=== PATIENT | female | born 1985 | race Caucasian/White ===

== ENCOUNTER → 2021-07-01 | Day surgery (SDC) | payer OTHER ==
[~2021-07-01] VITALS: Ht 175.3 cm; Wt 74.4 kg
[~2021-07-01] MED LIST: BCAA PO; CEPHALEXIN500 MG PO; COLLAGEN PO; DIGESTIVE ENZY220 MG PO; FISH OIL 1,0001 EAC1 PO; MIRENA1 EACH; NORCO7.5 PO; PROBIOTIC1 EAC2 PO; PROTEIN POWDER480 GM PO; SUPER THERAVIT1 EACH PO; [UNRECOGNIZED DRUG - OTHER] PO; [UNRECOGNIZED DRUG - OTHER] PO
--- NOTE | ~2021-07-01 | O ---
[facility] [place] [address] OPERATIVE REPORT Name: MONSTER LA Room #: REG [facility] M.R.#: [id number] Admission: 07/01/21 Attend Phys: Ramirez Galindo MD Discharge: Date of : 81 Report #: [id number] THIS REPORT FOR: cc: Desirae Darling MD, Michelle R. MD Shapiro, Peter E. MD ~ DATE OF SERVICE: 07/01/2021 PREOPERATIVE DIAGNOSES: Deviated nasal septum with nasal airway obstruction. POSTOPERATIVE DIAGNOSES: Deviated nasal septum with nasal airway obstruction. OPERATIVE PROCEDURE: Nasal septoplasty. ANESTHESIA: General via laryngeal mask. DESCRIPTION OF PROCEDURE: The patient was taken to the operating room and placed in supine position. General anesthesia was induced by laryngeal mask. Once adequate general anesthesia was obtained, local nasal anesthesia was induced by submucoperichondrial injection of 1% lidocaine with 1:100,000 epinephrine and topical application of cocaine solution. The patient was then draped in a sterile manner. The patient had a nasal septal deviation, primarily to the right side. A hemitransfixion incision was placed on the right side of the nose and the mucoperichondrium and mucoperiosteum were elevated off of the septum. She had a granuloma on the left anterior superior septum and I removed this with a small scissors. I the cartilage near the bony cartilaginous junction and elevated the perichondrium and periosteum on the opposite side. I removed deviated bone from the mid portion of the septum. There was a septal spur along the floor consisting of hypertrophic cartilage and a fractured maxillary crest. The cartilage was removed as a long strip. The maxillary crest was infractured and rongeured. After these maneuvers, the septum sat more in the midline. The hemitransfixion incision was then closed with 4-0 chromic suture and a 4-0 plain mattress suture was placed as well. The patient tolerated the procedure well. Blood loss was approximately 10 mL. The patient was then awoken and taken to the recovery room in stable condition for postoperative monitoring. By: 0913 6 Ramirez Galindo MD /moise
--- NOTE | 2021-07-01 09:19 | H ---
[facility] [place] [address] HISTORY AND PHYSICAL Name: MONSTER LA Room #: REG [facility] M.Volodymyr.#: [id number] Admission: 07/01/21 Attend Phys: Ramirez Galindo MD Discharge: Date of : 81 Report #: [id number] THIS REPORT FOR: cc: Desirae Darling MD, Michelle R. MD Shapiro,Ramirez Mattson MD ~ DATE OF SERVICE: 07/01/2021 HISTORY OF PRESENT ILLNESS: The patient has severe snoring. She has been waking herself up because of the snoring. She had a home sleep test, which was negative and she did not have evidence of sleep apnea. She has restless sleep. She has never had tonsil and adenoid problems. She was found to have a deviated nasal septum with tonsil and adenoid hypertrophy. PAST MEDICAL HISTORY: Otherwise not significant. MEDICATIONS: She takes no medications on a regular basis. ALLERGIES: She has no known drug allergies. PHYSICAL EXAMINATION: She has a deviated nasal septum to the right side with a decreased nasal airway. The airway is limited by about 75% on the right side. The septum almost touching the lateral wall. Her tonsils are mildly enlarged. IMPRESSION: Deviated nasal septum with nasal airway obstruction, causing upper airway obstruction and snoring. PLAN: Nasal septoplasty. <ELECTRONICALLY SIGNED> By: Ramirez Galindo MD 07/01/21 0919 [id number] Ramirez Galindo MD /moise
[2021-07-01 09:23] VITALS: BP 124/74
[2021-07-01 10:50] VITALS: BP 124/74
== END | disposition home or self-care (01) ==
LOC: OR 06-25 11:46
PROVIDERS: ATTEND Otolaryngology
DX: J34.2 Deviated nasal septum (principal); J34.89 Other specified disorders of nose and nasal sinuses; Z20.822 Contact with and (suspected) exposure to COVID-19; Z98.890 Other specified postprocedural states; Z79.899 Other long term (current) drug therapy
CPT/HCPCS: 50010; 50101; 50386; 50398; 56524; 56528; 62110; 62900; 64037; 70005